=== PATIENT | male | born 1990 | race Caucasian/White ===

== ENCOUNTER → 2017-07-07 | Outpatient (CLI) | payer MEDICAID, SELFPAY | LOC: M OUTALCOH 11:00 | DX: F10.10 Alcohol abuse, uncomplicated (principal) ==

== ENCOUNTER 2017-07-20 11:00 | Outpatient (RCR) | payer MEDICAID | END 2017-08-10 | LOC: M OUTALCOH 11:00 | DX: F10.10 Alcohol abuse, uncomplicated (principal) ==

== ENCOUNTER 2017-08-15 09:39 | Outpatient (RCR) | payer BC, OTHER | END 2017-09-10 | LOC: M OUTALCOH 08-25 16:00 | DX: F10.10 Alcohol abuse, uncomplicated (principal) ==

== ENCOUNTER 2017-09-30 16:00 | Outpatient (RCR) | payer BC | END 2017-10-10 | LOC: M OUTALCOH 16:00 | DX: F10.10 Alcohol abuse, uncomplicated (principal) ==

== ENCOUNTER 2017-10-28 15:46 | Outpatient (RCR) | payer BC | END 2017-11-10 | LOC: M OUTALCOH 15:46 | DX: F10.10 Alcohol abuse, uncomplicated (principal) ==

== ENCOUNTER 2017-11-18 16:10 | Outpatient (RCR) | payer BC, OTHER | END 2017-12-10 | LOC: M OUTALCOH 16:10 | DX: F10.10 Alcohol abuse, uncomplicated (principal) ==

== ENCOUNTER → 2024-06-29 | Outpatient (REF) | payer BC, OTHER | LOC: M LAB REF 16:04 | PROVIDERS: ATTEND Physician Assistant | DX: B34.9 Viral infection, unspecified (principal) ==

== ENCOUNTER → 2024-08-20 | Outpatient (REF) | payer BC | LOC: M LAB REF 17:31 | PROVIDERS: ATTEND Internal Medicine | DX: E78.5 Hyperlipidemia, unspecified (principal) ==